=== PATIENT | female | born 1940 | race Caucasian/White ===

== ENCOUNTER → 2016-09-19 | Day surgery (SDC) | payer MEDICARE ==
--- NOTE | 2016-09-14 17:44 | MH ---
cc: Johnny BHANDARI M.D. 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 HISTORY OF THE PRESENT ILLNESS This is a pleasant 76-year-old female who is being admitted today for revision left total knee arthroplasty. PAST MEDICAL HISTORY Other past history: 1. 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 2. She has a history arthritis. 3. Hypertension. 4. And back pain. CURRENT MEDICATIONS Include: 1. Verapamil. 2. Potassium chloride. 3. Lisinopril. 4. Coumadin, which stopped 4 days before surgery. 5. She has had surgery in the past for bilateral total knees 14 years ago. REVIEW OF SYSTEMS Noncontributory. FAMILY HISTORY Noncontributory. SOCIAL HISTORY She does not smoke or drink. ALLERGIES SHE IS ALLERGIC TO PENICILLIN, INTRAVENOUS PYELOGRAM DYE. PHYSICAL EXAMINATION GENERAL: We find a 76-year-old female, well-developed, well-nourished, alert and oriented x3 complaining of pain in her left knee. VITAL SIGNS: Blood pressure 126/82, pulse 88 and regular, respirations 16, temperature 97.8, pulse oximetry 96% on room air. HEENT: Eyes PERRL, EOMI. Ears, nose, mouth clear. NECK: Supple. LUNGS: Clear. HEART: Regular rate. ABDOMEN: Soft. Positive bowel sounds and nontender. EXTREMITIES: Reveal the left knee to have poor range of motion with varus-valgus instability. She is neurovascularly intact to her toes. IMPRESSION Failed left total knee arthroplasty. PLAN Admission for revision left total knee arthroplasty today. Johnny Bhandari MD JRSantiago/KK /4:39 PM /5:25 PM
[~2016-09-19] VITALS: Ht 165.1 cm; Wt 118.8 kg
[~2016-09-19] MED LIST: ACET1CAP18 PO; ALLE10TA PO; BUPR150T3 PO; DILTIAZEM-CD 120 MG CAP ER PO ONE; DULO1CAP3 PO; K-TA10TA PO; LEVO88TA2 PO; LISI10TA3 PO; METOPROLOL TARTRATE 25 MG TAB ONE; METOPROLOL TARTRATE 25 MG TAB PO ONE; MULTCAP2 PO; UMEC1AER INH; VERA1TAB17 PO; WARF-23 PO
[2016-09-19 08:23] VITALS: BP 157/100; PULSE 98; RESP 16; TEMP 98.7; O2SAT 97
[2016-09-19 08:36] LABS: AUTOMATED NEUTROPHIL # 2.7 TH/MM3 (1.8-7.7); BASOPHIL % 0.9 % (0.0-2.0); EOSINOPHIL # 0.1 TH/MM3 (0-0.4); EOSINOPHIL % 2.7 % (0.0-4.0); HEMATOCRIT 37.5 % (35.0-46.0); HEMO FLAGS DIFF FINAL; LYMPH % 32.3 % (9.0-44.0); LYMPHOCYTE # 1.6 TH/MM3 (1.0-4.8); MEAN CELL VOLUME 88.5 FL (80.0-100.0); MEAN CORPUSCULAR HEMOGLOBIN 28.8 PG (27.0-34.0); MEAN CORPUSCULAR HGB CONC 32.6 % (32.0-36.0); MONO % 8.6 % (0.0-8.0); NEUT % 55.5 % (16.0-70.0); PLATELET COUNT 199 TH/MM3 (150-450); RED BLOOD COUNT 4.24 MIL/MM3 (4.00-5.30); RED CELL DISTRIBUTION WIDTH 14.4 % (11.6-17.2); WHITE BLOOD COUNT 4.9 TH/MM3 (4.0-11.0)
--- NOTE | 2016-09-19 09:16 | HHI.PR ---
Subjective Remarks [facility] Hospitalist team was called to see this patient who was being evaluated kyle -operatively for knee arthroplasty and was found to be in atrial fibrillation, rate controlled. Pt is asymptomatic. The case was discussed between Dr. Bhandari and the patients PCP, Dr. Lacy, and subsequently the case was discussed between Dr. Bhandari and Dr. Ferguson. It was agreed upon to start the patient on Metoprolol 25mg po BID She will receive the first dose of Metoprolol in the perioperative area for observation. Her perioperative BP was 150/105 after the pt had already taken her Lisinopril and Verapamil this morning. Pt is to followup with Dr. Lacy this week. Objective Vitals Vital Signs Date Time Temp Pulse Resp B/P Pulse Ox O2 Delivery O2 Flow Rate FiO2 09/19/16 08:23 98.7 98 16 157/100 97 Result Diagram: 09/19/16 0820 Objective Remarks General: NAD, AAOx3 Chest: CTA Cardiac: Irregular Abd: +BS, soft ND Ext: No edema A/P Assessment and Plan Patient examined. Assessment and plan formulated with Raisa Canales PA-C. I agree with the above. Raisa Canales Sep 19, 2016 09:15 Slick Ferguson DO Oct 16, 2016 10:08
[2016-09-19 10:14] VITALS: BP 121/71; PULSE 72; RESP 20; TEMP 97.4; O2SAT 98
--- NOTE | 2016-09-19 18:25 | EKG ---
Date Performed: 09/19/2016 Time Performed: 08:18:00 PTAGE: 76 years EKG: ATRIAL FIBRILLATION MODERATE VOLTAGE CRITERIA FOR LVH, CONSIDER NORMAL VARIANT POSSIBLE ANT ERIOR MYOCARDIAL INFARCTION , PROBABLY OLD Atrial fibrillation is new since prior tracing. Clinical c orrolation is suggested. ABNORMAL RHYTHM ECG PREVIOUS TRACING : 03/15/2011 11.44 DOCTOR: Han Pena Interpretating Date/Time 09/19/2016 18:23:39
== END | disposition home or self-care (01) ==
LOC: HSDI 07:22 → UNDOADMIN 07:22 → HSDC 07:22 → EDSTATUS 09:30
PROVIDERS: ATTEND Surgery
DX: M25.362 Other instability, left knee (principal); I10 Essential (primary) hypertension; Z53.09 Procedure and treatment not carried out because of other contraindication; Z96.652 Presence of left artificial knee joint; Z79.01 Long term (current) use of anticoagulants
CPT/HCPCS: 85025; 86850; 86900; 86901; 93005; G0463; L1830; 99211